=== PATIENT | male | born 1975 | race Caucasian/White ===

== ENCOUNTER 2024-07-16 21:13 | Emergency (ER) | payer MEDICAID, SELFPAY ==
--- NOTE | ~2024-07-16 | CT_ITS ---
CLINICAL HISTORY: fall, facial injury CT maxillofacial without contrast Comparison: None Findings: Age-indeterminate right anterior nasal bone fracture. Nasal septum intact. Right anterior frontal scalp contusion. Mild right supraorbital soft tissue swelling. Mild fat stranding in the medial right preseptal intraorbital soft tissues. No retrobulbar hemorrhage or hematoma identified. Globes intact. No orbital fracture. No foreign body. IMPRESSION: 1. Age-indeterminate right anterior nasal bone fracture. 2. Mild right supraorbital soft tissue swelling with mild fat stranding in the medial right preseptal intraorbital soft tissues. No globe injury or retrobulbar /intraconal injury. 3. Mild right anterior frontal scalp contusion. This document has been electronically signed by: Dilan Duque MD on 07/17/2024 00:27:19
--- NOTE | ~2024-07-16 | CT_ITS ---
CLINICAL HISTORY: fall CT cervical spine without contrast Comparison: None Findings: Cervical vertebral body heights maintained. No traumatic listhesis, subluxation, or dislocation demonstrated. No acute fracture identified. Intervertebral disc spaces are congruent. Diffuse mccnsqcs-cq-[id number] degenerative changes. No suspicious lytic or blastic osseous lesion. No acute prevertebral or paraspinous soft tissue finding. Visualized portions of the lung apices are clear. IMPRESSION: 1. No CT evidence of acute traumatic cervical spine injury. This document has been electronically signed by: Dilan Duque MD on 07/17/2024 00:30:37
--- NOTE | ~2024-07-16 | CT_ITS ---
CLINICAL HISTORY: head injury CT head without contrast COMPARISON: None FINDINGS: Small right anterior frontal scalp contusion. Small right parietal scalp contusion. Global cerebral volume loss and chronic microvascular ischemic changes. No acute intracranial hemorrhage, extra-axial fluid collection, mass effect, or midline shift. Ventricular system and basilar cisterns are patent. العلي-white matter differentiation is maintained. No gross orbital abnormality. No suspicious or acute bone lesion. Mastoid air cells and paranasal sinuses are predominantly clear. IMPRESSION: 1. No acute intracranial abnormality. 2. Global cerebral volume loss and chronic microvascular ischemic changes. This document has been electronically signed by: Dilan Duque MD on 07/17/2024 00:22:22
[2024-07-16 21:26] VITALS: BP 144/76; PULSE 98; O2SAT 98
[2024-07-16 21:39] VITALS: BP 151/92; PULSE 83; RESP 16; TEMP 36.7; O2SAT 98; BMI 31.6
--- NOTE | 2024-07-16 21:45 | PC.NURSE ---
Belongings in self 4. Pt changed over by security and home appliance tech in family room. Pt unsteady gait.
--- NOTE | 2024-07-16 22:01 | ED.ALCOHOL ---
HPI - Alcohol General Chief Complaint: ETOH/Substance Use Stated Complaint: etoh Time Seen by Provider: 07/16/24 21:27 History of Present Illness HPI narrative: Patient is a 49-year-old male with a history of being homeless. Daily drinker. Last finished drinking 2 hours ago. Patient now wants detox immediately. No suicidal homicidal ideations. Related Data Allergies Allergy/AdvReac Type Severity Reaction Status Date / Time bee pollen [bee stings] Allergy Anaphylaxis Verified 07/16/24 21:42 Penicillins Allergy Hives Verified 07/16/24 21:42 Review of Systems Review of Systems: Positive EtOH PMFSH Past Medical History Attestation statement: The following information was validated with the patient. Physical Exam ED Vital Signs: Vital Signs - 24 hr 07/16/24 21:39 Temperature 98.0 F Pulse Rate 83 Respiratory Rate 16 Blood Pressure 151/92 H Pulse Oximetry 98 Oxygen Delivery Method Room Air BMI result Body Mass Index 31.6 Appearance: Alert. Oriented X3. No acute distress. Eyes: Pupils equal, round and reactive to light. ENT: Pharynx normal. Neck: Normal inspection. Neck supple. No lymph nodes noted. No crepitus CVS: Normal heart rate and rhythm. Pulses normal. Normal S1 and S2 Respiratory: No respiratory distress. Breath sounds normal. No Wheezing. No rales Abdomen: Soft and nontender. No rigidity. No distention. good BS x4 Skin: Skin warm and dry. Normal skin color. Normal skin turgor. Extremities: No lower extremity edema. Neurovascular intact to all extremities. No Lacerations. No Rash Neuro: Oriented X 3. No motor deficit. No sensory deficit. Moving all extermities. No slurred speech Medical Decision Making Medical Decision Making MDM Narrative: Well-appearing no acute distress grossly intoxicated while sitting on the rolling chair patient fell accidentally question hitting his head a CT scan of the head and C-spine was ordered patient is moving all extremity no distress. Baseline labs ordered. Patient's questions we fell in the emergency department. CT scan of the hip by my interpretation is negative for bleeding. CT scan C-spine CT scan of the face showed a question nasal bone fracture. Alcohol was elevated at greater than 400. Currently awaiting clinical sobriety. Differential Diagnosis Differential Diagnoses: The differential diagnosis associated with the presentation includes Head injury, fracture, alcohol intoxication Admission/Observation Consideration of admission/observation: Escalation of care including admission/observation considered Lab Data MDM Lab Attestation statement: I reviewed the patient's lab results. 07/16/24 22:09 07/16/24 22:09 Labs: Lab Results 07/16/24 Range/Units 22:09 WBC 8.2 (4.8-10.8) X10*3/uL RBC 3.82 L (4.60-5.80) X10*6/uL Hgb 13.6 L (14.0-18.0) g/dl Hct 38.9 L (42.0-52.0) % MCV 101.8 H (80.0-98.0) fL MCH 35.6 H (27.0-33.0) pg MCHC 35.0 (31.0-36.0) g/dl RDW 12.4 (11.0-16.0) % Plt Count 86 L (160-400) X10*3/uL MPV 8.8 L (9.4-12.4) fL Immature Gran % (Auto) 0.1 (0.0-0.4) % Neut % (Auto) 73.2 H (45-73) % Lymph % (Auto) 16.4 L (20-40) % Kenedy % (Auto) 9.4 (2-11) % Eos % (Auto) 0.5 (0-4) % Baso % (Auto) 0.4 (0-2) % Lymph # (Auto) 1.4 (1.2-4.9) X10*3/uL Kenedy # (Auto) 0.8 (0.1-1.2) X10*3/uL Eos # (Auto) 0.0 (0.0-0.4) X10*3/uL Baso # (Auto) 0.0 (0.0-0.2) X10*3/uL Abs Immat Gran (auto) 0.01 (0.00-0.03) X10*3/uL Absolute Neuts (auto) 6.0 (2.0-8.3) x10*3/uL Absolute Nucleated RBC 0.000 (0.0-0.012) X10*3/uL Nucleated RBC % (auto) 0.0 (0.0-0.2) /100WBC Sodium 144 (135-145) mmol/L Potassium 4.2 (3.3-5.1) mmol/L Chloride 103 (96-108) mmol/L Carbon Dioxide 25 (22-29) mmol/L Anion Gap 20 (12-20) BUN 5 L (9-16) mg/dL Creatinine 0.71 (0.5-1.4) mg/dL Estim Creat Clear Calc 145.7 Estimated GFR > 60 Random Glucose 100 (60-115) mg/dL Calcium 9.1 (8.4-10.2) mg/dL Ethyl Alcohol 474 H* mg/dL Chronic Conditions Alcohol intoxication Social Determinants Patient?s care significantly limited by Social Determinants of Health including: Alcoholism and drug addiction in family, Problems related to primary support group and Unemployment Medications Administered Discontinued Medications Generic Name Dose Route Start Last Admin Trade Name Freq PRN Reason Stop Dose Admin Sodium Chloride 1,000 mls @ 999 mls/hr 07/16/24 22:00 07/16/24 22:57 Ns IV 07/16/24 23:00 999 mls/hr .Q1H1M [facility] Administration Discharge Plan Discharge Clinical Impression: Alcoholic intoxication, Head injury, Closed fracture nasal bone Instructions: Abuse of Alcohol (DC), Head Injury (ED) Referrals: [facility] [Provider Group] Print Language: Salvadorean
[2024-07-16 22:13] LABS: MANUAL DIFF FLAG NO
[2024-07-16 22:15] LABS: Basophils Percent Auto 0.4 % (0-2); Eosinophils Percent Auto 0.5 % (0-4); Hematocrit 38.9 % (42.0-52.0); Hemoglobin 13.6 g/dl (14.0-18.0); Imm Gran Abs Auto 0.01 X10*3/uL (0.00-0.03); Imm Gran Pct Auto 0.1 % (0.0-0.4); Lymphocytes Absolute Auto 1.4 X10*3/uL (1.2-4.9); Lymphocytes Percent Auto 16.4 % (20-40); Mean Corpuscular Hemoglobin 35.6 pg (27.0-33.0); Mean Corpuscular Volume 101.8 fL (80.0-98.0); Mean Platelet Volume 8.8 fL (9.4-12.4); Monocytes Absolute Auto 0.8 X10*3/uL (0.1-1.2); Monocytes Percent Auto 9.4 % (2-11); Neutrophils Percent Auto 73.2 % (45-73); Red Blood Count 3.82 X10*6/uL (4.60-5.80); Red Cell Distribution Width 12.4 % (11.0-16.0); White Blood Count 8.2 X10*3/uL (4.8-10.8)
[2024-07-16 22:16] LABS: Platelet Count 86 X10*3/uL (160-400)
[2024-07-16 22:28] LABS: Anion Gap 20 (12-20); Blood Urea Nitrogen 5 mg/dL (9-16); Calcium 9.1 mg/dL (8.4-10.2); Carbon Dioxide 25 mmol/L (22-29); Chloride 103 mmol/L (96-108); Creatinine Clr Calc Pharmacy 145.7; Estimated Glomerular Filt Rate > 60; Ethanol 474 mg/dL; Glucose Random 100 mg/dL (60-115); Potassium 4.2 mmol/L (3.3-5.1); Sodium 144 mmol/L (135-145)
[2024-07-16] MEDS: 0.9 % Sodium Chloride 1,000 ML 999 ML IV (22:57)
[2024-07-17 03:53] VITALS: BP 137/85; PULSE 102; RESP 20; TEMP 37.2; O2SAT 94
[2024-07-17 04:02] LABS: Amphetamine Screen Urine Not Detected (Not Detect); Barbiturates, Urine Not Detected (Not Detect); Benzodiazepines Screen Urine Not Detected (Not Detect); Buprenorphine Scr Not Detected (Not Detect); Cannabinoid Screen Urine POSITIVE (Not Detect); Cocaine Screen Urine Not Detected (Not Detect); Fentanyl, urine Not Detected (Not Detect); Methadone Screen, Urine Not Detected (Not Detect); Opiate Screen Urine Not Detected (Not Detect); Oxycodone Screen Urine Not Detected (Not Detect); Phencyclidine Screen Urine Not Detected (Not Detect)
--- OUTSIDE RECORDS SUMMARY | 2024-07-17 04:44 | XMS_ITS ---
Author Organization [facility] Address [address] [place], [place] [id number] Care Team Providers Care Splitting Machine Operator Helper Name Role Phone Cadence Posey Primary Care Provider REASON FOR VISIT C3 ER Visit Encounters Encounter Location Date Provider Diagnosis [facility] [address] [place], [place] [phone] 12/20/2023 Cadence Posey Plan Of Treatment No Information Progress Notes * Mu LALADOB:[birth year] (48 yo M)Acc No.[id number]:12/20/2023 Patient:?Dai Mu :1975???Age:48 Y???Sex:Male Address:[address] [place] [id number] * true * Date:? Generated for Bebeto tucker/Mine/eTransmitting on:?07/17/2024 04:43 AM EDT
--- OUTSIDE RECORDS SUMMARY | 2024-07-17 04:44 | XMS_ITS ---
Author Organization [facility] Address [address] [place] [phone] Care Team Providers Care Security Risk Analyst Name Role Phone Cadence Posey Primary Care Provider REASON FOR VISIT office: f/u ( released from [facility]) Encounters Encounter Location Date Provider Diagnosis [address] [phone] 08/23/2023 Cadence Posey Encounter for screening for COVID-19 Z11.52 Assessments Encounter Date Diagnosis (ICD Code) Assessment Notes Treatment Notes Treatment Clinical Notes 08/23/2023 Encounter for screening for COVID-19 (ICD-10 - Z11.52) Covid screening is negative. Discussed in detail with patient how to practice social distancing by avoiding public spaces and crowds now, wearing a mask in public to keep nose and mouth covered, and washing hands frequently especially before eating and after using the bathroom. Return to clinic if you develop any symtpoms of concern to be rescreened or go to the emergency room if you are having concerning symptoms for COVID-19. 08/23/2023 Other Plan Of Treatment Treatment Notes Assessment Notes Encounter for screening for COVID-19 Cov id screening is negative. Discussed in detail with patient how to practice social distancing by avoiding public spaces and crowds now, wearing a mask in public to keep nose and mouth covered, and washing hands frequently especially before eating and after using the bathroom. Return to clinic if you develop any symtpoms of concern to be rescreened or go to the emergency room if you are having concerning symptoms for COVID-19. Progress Notes * Mu LALADOB:[birth year] (49 yo M)Acc No.[id number]:08/23/2023 Progress Notes Patient:Mu GOMEZ Provider:?LALO Sellers :1975???Age:48 Y???Sex:Male Marquise e:08/23/2023 Address:[address] [place], [place] [phone] Subjective: * Chief Complaints: * ???1. office: f/u ( released from [facility]). * HPI: ???General:? Symptom Screen: - Fever in the last 1 week? Patient denies - New or worsening cough in the last 1 week? Patient denies. - Contact will known COVID exposure in last 5 days? Patient denies -new rash within last 3 weeks? Patient denies RN/MA: - Have you received the COVID-19 vaccine? - Have you received COVID-19 booster? - Have you been tested positive for COVID -19 in the last 7 days? If so where and why?. * ROS:?No acute C/P no acute SOB, No problem with urine, No heartburn or abdominal pain. Endorses being able to climb one fight of stairs without stopping due to SOB, Mood: stable, appetite: good, sleeping well. Denies new skin rashes. * Medical History:? Objective: * Vitals:? Assessment: * Assessment: 1.?Encounter for screening f or COVID-19 - Z11.52 (Primary)??? Plan: * Treatment: * Images: Billing Information: * Visit Code:? * Procedure Codes:? Care Plan Details* * Electronic signature of Franco Posey on 07/17/2024 at 04:44 AM EDT Sign off status: Pending * Provider:?LALO Sellers Date: ?08/23/2023 Generated for Bebeto tucker/Mine/Blanca on:?07/17/2024 04:44 AM EDT
--- OUTSIDE RECORDS SUMMARY | 2024-07-17 04:44 | XMS_ITS | Clinical Summary ---
Author Organization [facility] Address [address] [facility] 7 [place] [address] Care Team Providers Care Biology Teacher Name Role Phone Karol Thayer MD Primary Care Provider [phone] Medications EPINEPHrine (Epipen) 0.3 MG/0.3ML injection syringe INJECT INTRAMUSCULARLY FOR ALLERGIC REACTIONS, CALL 911 SEEK MEDICAL ATTENTION 12/04/19 22 Active Social History Tobacco Use Types Packs/Day Years Used Date Smoking Tobacco: Never Assessed Sex and Gender Information Value Date Recorded Sex Assigned at Not on file Legal Sex Male 5:31 PM EST Gender Identity Not on file Sexual Orientation Not on file Plan of Treatment Health Maintenance Due Date Last Done Comments CT Colonography 1973 Colonoscopy 1973 Colorectal Cancer Screening 1973 Depression Screening 1973 FIT DNA/Cologuard 1973 FIT 1973 FOBT 1973 Lipid Panel 1973 Sigmoidoscopy 1973 Alcohol/Substance Use Screening 1985 Tobacco Screening 1985 Family Planning (PISQ) 1988 DTaP/Tdap/Td Vaccines (1 - Tdap) 1992 Hepatitis B Vaccines (1 of 3 - 19+ 3-dose series) 1992 Pneumococcal Vaccine: 50+ Ye ars (1 of 1 - PCV) 2023 Zoster Vaccines (1 of 2) 2023 COVID-19 Vaccine ( - 2023-2 5 season) 2023 Influenza Vaccine (#1) 2023 RSV Patients and Pa tients Aged 60 years or older (1 - 1-dose 75+ series) 2048 HIB Vaccines Aged Out No longer eligi ble based on patient's age to complete this topic HPV Vaccines Aged Out No longer eligi ble based on patient's age to complete this topic Hepatitis A Vaccines Aged Out No long er eligible based on patient's age to complete this topic IPV Vaccines Aged Out No longer eligi ble based on patient's age to complete this topic Meningococcal Vaccine Aged Out No guicho richard eligible based on patient's age to complete this topic Pneumococcal Vaccine: Pediat rics (0 to 5 Years) and At-Risk Patients (6 to 49) Years) Aged Out No longer eligible b ased on patient's age to complete this topic RSV under 20 months Aged Out No longe r eligible based on patient's age to complete this topic Rotavirus Vaccines Aged Out No longer eligible based on patient's age to complete this topic Care Teams Biology Teacher Relationship Specialty Start Date End Date Karol Thayer MD [address] [place] [address] PCP - General Family Medicine 06/07/22
--- OUTSIDE RECORDS SUMMARY | 2024-07-17 04:44 | XMS_ITS | Patient Health Record ---
Author Organization [facility] Address [address], [place] [phone] Care Team Providers Care Manager Book Name Role Phone Cadence Posey Primary Care Provider Allergies Allergen (clinical drug ingredient) Drug/Non Drug Allergy documented on EMR Reaction Allergy Type Onset Date Status penicillin anaphylaxis Drug Allergy Acti ve Reason For Referral No Information Medications Medication SIG (Take, Route, Frequency, Duration) Notes Start Date End Date Status folic acid 1 mg 1 tab(s) orally once a day for 28 day(s) 02/24/2021 Not-Taking thiamine 100 mg 1 tab(s) orally once a day for 28 day(s) 02/24/2021 Not-Taking Divalproex Sodium ER 500 mg 1 tab(s) orally at night for 30 day(s) 02/25/2021 Not-Taking Immunizations Vaccine Route Administration Date Status Comme nts H1N1 Influenza IM Intramuscular 04/25/2009 Administered Social History Tobacco Use: Social History Observation Description Date Details (start date - stop date) Former Smoker NA - NA Tobacco Use Assessment MU Question Answer Notes What is your current smoking status? former smok er and Chew Problems Problem Type SNOMED Code ICD Code Onset Dates Problem Status W/U Status Risk Notes Problem Obesity (878426036) Obesity, unspecified (E66.9) Active confirmed Problem Alcohol abuse (56758064) Alcohol abuse, uncomplicated (F10.10) Active confirmed Problem Tobacco user (764828886) Nicotine dependence, cigarettes, uncomplicated (F17.210) Active confirmed Problem Manic bipolar I disorder in partial remission (63847710) Bipolar disorder, in partial remission, most recent episode manic (F31.73) Active confirmed Pt has had SSRI induced urmila, witnessed by Dr. Thayer. Manic episodes last approx 4 days and are followed by depressive episode with binge drinking. Problem Personality disorder (21709223) Personality disorder, unspecified (F60.9) Active confirmed Problem Cyst of eyelid (10913088) Cysts of right lower eyelid (H02.822) Active confirmed Problem Essential hypertension (02665546) Essential (primary) hypertension (I10) Active confirmed Problem Anal fissure (48527637) Anal fissure, unspecified (K60.2) Active confirmed Problem Residual hemorrhoidal skin tags (77913121) Residual hemorrhoidal skin tags (K64.4) Active confirmed Problem Varicose veins of left lower limb (22933978796019 109) Varicose veins of left lower extremity with pain (I83.812) Active confirmed Problem Body mass index 30.00 to 34.99 (85648129946174 7) Body mass index [BMI] 31.0-31.9, adult (Z68.31) Active confirmed Problem Unsheltered homelessness (72243161810578 5) Unsheltered homelessness (Z59.02) Active confirmed Problem Body mass index 30.00 to 34.99 (90394032112287 7) Body mass index (BMI) 34.0-34.9, adult (Z68.34) Inactive confirmed Problem Sheltered homelessness (00947973775661 0) Sheltered homelessness (Z59.01) Inactive confirmed Encounters Encounter Location Date Provider Diagnosis [facility] [address], [place] [phone] 12/05/[address] [facility] [address], [place] [phone] 12/20/2023 Cadence Posey Assessments Encounter Date Diagnosis (ICD Code) Assessment Notes Treatment Notes Treatment Clinical Notes 08/23/2023 Other Plan Of Treatment Pending Test Test Name Order Date HEPATITIS B SURFACE AB IMMUNITY, QN 07/27 CHLAMYDIA / GC DNA W RFLX 02/24/2021 HEPATITIS A,B,C PROFILE 07/12/2022 Insurance Providers Payer Name Payer Address Payer Phone Subscriber Number Group Number Insured Name Patient Relationship to Insured Coverage Start Date Coverage End Date [place] C3 [address] [place], [place] [id number] Mu Lala Self - patient is the insured 2 Medical (General) History Medical History History ICD Code Alcoholism High blood pressures ? 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
--- OUTSIDE RECORDS SUMMARY | 2024-07-17 04:44 | XMS_ITS ---
Author Organization [facility] Address [address] [place], [place] [phone] Care Team Providers Care Utility Spray Operator Name Role Phone Cadence Posey Primary Care Provider [phone] REASON FOR VISIT C3 ER Visit Encounters Encounter Location Date Provider Diagnosis [facility] [address] [place], [place] [phone] 12/05/2023 Cadence Posey Plan Of Treatment No Information Progress Notes * Mu LALADOB:[birth year] (48 yo M)Acc No.[id number]:12/05/2023 Patient:?Dai Mu :1975???Age:48 Y???Sex:Male Address:[address] [place] [phone] * true * Date:? Generated for Bebeto tucker/Mine/eTransmitting on:?07/17/2024 04:43 AM EDT
[2024-07-17 06:26] VITALS: BP 161/86; PULSE 106; RESP 16; TEMP 36.8; O2SAT 96
[2024-07-17 06:40] VITALS: BP 161/86; PULSE 106; RESP 16; TEMP 36.8; O2SAT 96
== END 2024-07-17 06:45 | disposition home or self-care (01) ==
PROVIDERS: Emergency Provider Emergency Medicine Emergency Medical Services
DX: S02.2XXA Fracture of nasal bones, initial encounter for closed fracture (principal); F10.129 Alcohol abuse with intoxication, unspecified; R11.0 Nausea; R51.9 Headache, unspecified; M54.2 Cervicalgia; X58.XXXA Exposure to other specified factors, initial encounter; Y93.9 Activity, unspecified; Y92.9 Unspecified place or not applicable; Y99.8 Other external cause status; Z51.81 Encounter for therapeutic drug level monitoring; Z79.899 Other long term (current) drug therapy
CPT/HCPCS: 36415; 70450; 70486; 72125; 80048; 80307; 85025; 96360; 96361; 99284

== ENCOUNTER → 2024-07-16 21:59 | Outpatient (BNV) | payer MEDICAID, SELFPAY | PROVIDERS: Emergency Provider Emergency Medicine Emergency Medical Services; Visit Provider Radiology Diagnostic Radiology | DX: F10.120 Alcohol abuse with intoxication, uncomplicated (principal); S09.93XA Unspecified injury of face, initial encounter; I67.89 Other cerebrovascular disease; S09.90XA Unspecified injury of head, initial encounter; W19.XXXA Unspecified fall, initial encounter | CPT/HCPCS: 70450; 70486; 72125 ==